=== PATIENT | male | born 1960 | race African-American/Black ===

== ENCOUNTER 2017-03-26 13:22 | Emergency (ER) | payer MEDICARE, MEDICAID ==
[~2017-03-26] VITALS: Ht 170.2 cm; Wt 120.0 kg
[~2017-03-26 13:22] MED LIST: AMLO10TA80 PO; CARV25TA47 PO; CLOP75TA33 PO; DOCU-150 PO; FERR256T PO; FURO80TA3 PO; GLIP10TA10 PO; HYDR100T26 PO; INSLAN SQ; INSU100I7 SQ; ISOS60TA4 PO; LACT10SO PO; LISI10TA5 PO; MULT-1008 PO; POTA20TA12 PO
[2017-03-26 13:24] VITALS: BP 148/78
== END 2017-03-26 15:32 | disposition home or self-care (01) ==
LOC: ER 14:09
DX: Z13.89 Encounter for screening for other disorder (principal); I12.0 Hypertensive chronic kidney disease with stage 5 chronic kidney disease or end stage renal disease; E11.22 Type 2 diabetes mellitus with diabetic chronic kidney disease; N18.6 End stage renal disease; Z99.2 Dependence on renal dialysis; Z79.4 Long term (current) use of insulin; Z79.01 Long term (current) use of anticoagulants
CPT/HCPCS: 71045; 99283

== ENCOUNTER 2017-11-19 10:42 | Inpatient (IN) | payer MEDICARE, MEDICAID ==
[~2017-11-19] VITALS: Ht 170.2 cm; Wt 118.8 kg
[2017-11-19 11:54] LABS: BASOPHILS % 0.8 % (0.0-2.0); EOSINOPHILS % 1.1 % (0.0-5.0); HEMATOCRIT. 34.2 % (42.0-52.0); HEMOGLOBIN. 11.5 g/dL (14.0-18.0); LYMPHOCYTES % 14.1 % (20.0-50.0); MEAN CORPUSCULAR HEMOGLOBIN 30.1 pg (28.0-32.0); MEAN CORPUSCULAR VOLUME 89.5 fL (80.0-94.0); MEAN PLATELET VOLUME 7.5 fl (7.4-10.4); MONOCYTES % 9.4 % (2.0-8.0); NEUTROPHILS % 74.6 % (40.0-76.0); PLATELET 221 x1000/uL (130-400); RED BLOOD CELL COUNT 3.82 mill/uL (4.7-6.1); RED CELL DISTRIBUTION WIDTH 14.2 % (11.6-14.6)
[2017-11-19 12:03] LABS: PARTIAL THROMBOPLASTIN TIME 29.8 sec (23.4-31.0); PROTHROMBIN TIME 10.3 sec (9.1-11.1)
[2017-11-19 12:04] LABS: CHLORIDE 98 mEq/L (98-107)
[2017-11-19 12:41] LABS: HEPATITIS B SURFACE ANTIGEN NEGATIVE
[2017-11-19 13:10] LABS: HEPATITIS B CORE AB IGM NEGATIVE
[2017-11-19 13:11] LABS: HEPATITIS A AB IGM NEGATIVE (NEGATIVE)
[2017-11-19 19:32] LABS: CLARITY URINE CLEAR (CLEAR); COLOR URINE YELLOW (YELLOW); KETONES URINE NEGATIVE (NEGATIVE); LEUKOCYTE ESTERASE URINE NEGATIVE (NEGATIVE); NITRITE URINE NEGATIVE (NEGATIVE); OCCULT BLOOD URINE NEGATIVE (NEGATIVE); PH URINE 7.5 (4.5-8.0); PROTEIN URINE 1+ (NEGATIVE); SPECIFIC GRAVITY URINE 1.013 (1.005-1.030); UROBILINOGEN URINE 0.2 E.U./dL (0.2-1.0)
[2017-11-19 19:53] LABS: *AMPHETAMINES SCREEN URINE NEGATIVE (NEGATIVE); *BARBITURATES SCREEN URINE NEGATIVE (NEGATIVE); *BENZODIAZEPINES SCREEN URINE PRESUMTIVE POSITIVE (NEGATIVE); *COCAINE SCREEN URINE NEGATIVE (NEGATIVE); CANNABINOID URINE SCREEN NEGATIVE (NEGATIVE); METHADONE URINE SCREEN NEGATIVE (NEGATIVE); OPIATES URINE SCREEN NEGATIVE (NEGATIVE); PHENCYCLIDINE URINE SCREEN NEGATIVE (NEGATIVE)
[2017-11-19 22:30] VITALS: BP 155/71
[2017-11-20] VITALS: BP 168/86
[2017-11-20] MEDS ORDERED: DEXTROSE 50% WATER 50ML SYRINGE IV PRN (01:45)
[2017-11-20] MEDS ORDERED: HYDROCODONE/ACETAMINOPHEN 5/325MG TABLET PO PRN ×2 (01:45→20:45)
[2017-11-20 04:00] VITALS: BP 155/83
[2017-11-20] MEDS: BLOOD SUGAR DIAGNOSTIC STRIP TEST SCH ×4 (05:18→21:34)
[2017-11-20] MEDS: INSULIN LISPRO 100 UNITS/ML SUBCUT SCH ×4 (05:41→21:00)
[2017-11-20 08:00] VITALS: BP 188/90
[2017-11-20] MEDS: LISINOPRIL 10MG TABLET PO SCH ×2 (10:13→20:32)
[2017-11-20] MEDS: HYDRALAZINE HCL 100MG TABLET PO SCH (10:14)
[2017-11-20] MEDS: CLOPIDOGREL 75MG TABLET PO SCH (10:15)
[2017-11-20] MEDS: CARVEDILOL 25MG TABLET PO SCH ×2 (10:15→20:31)
[2017-11-20] MEDS: ASPIRIN 81MG EC TABLET PO SCH (10:16)
[2017-11-20] MEDS: SEVELAMER CARBONATE 800 MG TABLET PO SCH ×3 (10:16→16:45)
[2017-11-20] MEDS: DOCUSATE SODIUM 100MG CAPSULE PO SCH (10:16)
[2017-11-20 16:00] VITALS: BP 138/69
[2017-11-20 20:00] VITALS: BP 168/80
[2017-11-20] MEDS: TEMAZEPAM 15MG CAPSULE PO PRN (20:29)
[2017-11-20] MEDS ORDERED: ACETAMINOPHEN 650MG SUPP PR PRN (20:45)
[2017-11-20] MEDS ORDERED: ONDANSETRON 4MG ODT PO PRN (20:45)
[2017-11-20] MEDS ORDERED: DOCUSATE SODIUM 100MG CAPSULE PO PRN (20:45)
[2017-11-20] MEDS ORDERED: ACETAMINOPHEN 325MG TABLET PO PRN (20:45)
[2017-11-20] MEDS ORDERED: MAGNESIUM/ALUMINUM HYDROXIDE/SIMETHICONE 30ML UDC PO PRN (20:45)
[2017-11-20] MEDS ORDERED: CLONIDINE 0.1MG TABLET PO PRN (20:45)
[2017-11-20 22:30] VITALS: BP 142/80
[2017-11-21] VITALS: BP 161/80
[2017-11-21] MEDS: LISINOPRIL 10MG TABLET PO SCH ×3 (00:39→20:29)
[2017-11-21] MEDS: CARVEDILOL 25MG TABLET PO SCH ×3 (00:39→20:29)
[2017-11-21 04:00] VITALS: BP 165/83
[2017-11-21] MEDS: BLOOD SUGAR DIAGNOSTIC STRIP TEST SCH ×4 (06:52→20:46)
[2017-11-21] MEDS: INSULIN LISPRO 100 UNITS/ML SUBCUT SCH ×4 (06:52→20:45)
[2017-11-21] MEDS: SEVELAMER CARBONATE 800 MG TABLET PO SCH ×3 (08:00→17:40)
[2017-11-21 08:08] LABS: BASOPHILS % 0.7 % (0.0-2.0); HEMATOCRIT. 32.5 % (42.0-52.0); HEMOGLOBIN. 11.1 g/dL (14.0-18.0); LYMPHOCYTES % 20.4 % (20.0-50.0); MEAN CORPUSCULAR HEMOGLOBIN 30.5 pg (28.0-32.0); MEAN CORPUSCULAR VOLUME 89.6 fL (80.0-94.0); MEAN PLATELET VOLUME 8.5 fl (7.4-10.4); MONOCYTES % 11.1 % (2.0-8.0); NEUTROPHILS % 66.8 % (40.0-76.0); PLATELET 151 x1000/uL (130-400); RED BLOOD CELL COUNT 3.63 mill/uL (4.7-6.1); RED CELL DISTRIBUTION WIDTH 14.8 % (11.6-14.6)
[2017-11-21] MEDS: HYDRALAZINE HCL 100MG TABLET PO SCH (09:36)
[2017-11-21] MEDS: DOCUSATE SODIUM 100MG CAPSULE PO SCH (09:36)
[2017-11-21] MEDS: ASPIRIN 81MG EC TABLET PO SCH (09:36)
[2017-11-21] MEDS: CLOPIDOGREL 75MG TABLET PO SCH (09:36)
[2017-11-21 12:00] VITALS: BP 120/76
[2017-11-21] MEDS ORDERED: SODIUM POLYSTYRENE SULFONATE 15 G/60 ML BOT PO NR (14:00)
[2017-11-21 16:00] VITALS: BP 126/80
[2017-11-21 20:00] VITALS: BP 135/69
[2017-11-22] VITALS (16 sets, daily range): BP systolic 99–183; BP diastolic 45–92
[2017-11-22] MEDS ORDERED: DEXT 5%/0.45% NACL 1000ML 1,000 ML IV SCH
[2017-11-22 06:26] LABS: PARTIAL THROMBOPLASTIN TIME 33.8 sec (23.4-31.0); PROTHROMBIN TIME 10.2 sec (9.1-11.1)
[2017-11-22 06:28] LABS: BASOPHILS % 0.6 % (0.0-2.0); EOSINOPHILS % 2.1 % (0.0-5.0); HEMATOCRIT. 28.8 % (42.0-52.0); LYMPHOCYTES % 21.2 % (20.0-50.0); MEAN CORPUSCULAR HEMOGLOBIN 31.1 pg (28.0-32.0); MEAN CORPUSCULAR VOLUME 89.3 fL (80.0-94.0); MEAN PLATELET VOLUME 7.7 fl (7.4-10.4); MONOCYTES % 11.6 % (2.0-8.0); NEUTROPHILS % 64.5 % (40.0-76.0); PLATELET 191 x1000/uL (130-400); RED BLOOD CELL COUNT 3.22 mill/uL (4.7-6.1); RED CELL DISTRIBUTION WIDTH 14.5 % (11.6-14.6)
[2017-11-22] MEDS: BLOOD SUGAR DIAGNOSTIC STRIP TEST SCH ×4 (06:42→21:12)
[2017-11-22] MEDS: INSULIN LISPRO 100 UNITS/ML SUBCUT SCH ×4 (06:43→21:12)
[2017-11-22] MEDS ORDERED: CEFAZOLIN 1000MG PREMIX 50 ML IV ONE ×2 (08:51→09:30)
[2017-11-22] MEDS ORDERED: HEPARIN 1000 UNITS/ML 10ML ONE (08:52)
[2017-11-22] MEDS ORDERED: LIDOCAINE HCL 1% 20ML VIAL (Pyxis) INJ ONE (08:52)
[2017-11-22] MEDS ORDERED: FENTANYL CITRATE/PF 50MCG/ML 2ML VIAL ONE (08:52)
[2017-11-22] MEDS ORDERED: SODIUM BICARBONATE 4% (2.4MEQ) 5ML VIAL IV ONE (08:52)
[2017-11-22] MEDS ORDERED: FENTANYL CITRATE/PF 50MCG/ML 2ML VIAL IV ONE (09:30)
[2017-11-22] MEDS: CARVEDILOL 25MG TABLET PO SCH ×2 (10:59→21:09)
[2017-11-22] MEDS: SEVELAMER CARBONATE 800 MG TABLET PO SCH ×3 (10:59→18:33)
[2017-11-22] MEDS: ASPIRIN 81MG EC TABLET PO SCH (11:00)
[2017-11-22] MEDS: DOCUSATE SODIUM 100MG CAPSULE PO SCH (11:00)
[2017-11-22] MEDS: LISINOPRIL 10MG TABLET PO SCH ×2 (11:08→21:10)
[2017-11-22] MEDS: CLOPIDOGREL 75MG TABLET PO SCH (11:08)
[2017-11-22] MEDS: HYDRALAZINE HCL 100MG TABLET PO SCH (11:09)
[2017-11-22] MEDS: TEMAZEPAM 15MG CAPSULE PO PRN (21:10)
[2017-11-23 00:36] VITALS: BP 108/47
[2017-11-23 04:00] VITALS: BP 100/75
[2017-11-23] MEDS: BLOOD SUGAR DIAGNOSTIC STRIP TEST SCH ×2 (06:25→12:39)
[2017-11-23] MEDS: INSULIN LISPRO 100 UNITS/ML SUBCUT SCH ×2 (06:49→12:39)
[2017-11-23 07:16] LABS: BARBITURATE SCREEN Negative ug/mL (Cutoff:0.1); BENZODIAZEPINE SCREEN Negative ng/mL (Cutoff:20); OPIATES SCREEN Negative ng/mL (Cutoff:5); PHENCYCLIDINE SCREEN Negative ng/mL (Cutoff:8)
[2017-11-23 08:00] VITALS: BP 146/65
[2017-11-23] MEDS: HYDRALAZINE HCL 100MG TABLET PO SCH (08:38)
[2017-11-23] MEDS: SEVELAMER CARBONATE 800 MG TABLET PO SCH ×2 (08:38→12:38)
[2017-11-23] MEDS: CARVEDILOL 25MG TABLET PO SCH (08:39)
[2017-11-23] MEDS: ASPIRIN 81MG EC TABLET PO SCH (08:39)
[2017-11-23] MEDS: DOCUSATE SODIUM 100MG CAPSULE PO SCH (08:39)
[2017-11-23] MEDS: CLOPIDOGREL 75MG TABLET PO SCH (08:39)
[2017-11-23] MEDS: LISINOPRIL 10MG TABLET PO SCH (08:39)
[2017-11-23 10:07] VITALS: BP_SYST 145; BP_SYST 147; BP_DIAS 48; BP_DIAS 65
[2017-11-23 12:00] VITALS: BP 145/48
== END 2017-11-23 15:00 | disposition home or self-care (01) | DRG 286 ==
LOC: ER 10:42 → 8WST 18:17 → ENRESERV 20:07
PROVIDERS: ADMIT Internal Medicine; ATTEND Internal Medicine
PROC: 05HM33Z Insertion of Infusion Device into Right Internal Jugular Vein, Percutaneous Approach (ICD-10-PCS; principal; 2017-11-20)
PROC: B513ZZA Fluoroscopy of Right Jugular Veins, Guidance (ICD-10-PCS; 2017-11-20)
PROC: B543ZZA Ultrasonography of Right Jugular Veins, Guidance (ICD-10-PCS; 2017-11-20)
PROC: B2141ZZ Fluoroscopy of Right Heart using Low Osmolar Contrast (ICD-10-PCS; 2017-11-22)
PROC: 0JH63XZ Insertion of Tunneled Vascular Access Device into Chest Subcutaneous Tissue and Fascia, Percutaneous Approach (ICD-10-PCS; 2017-11-22)
PROC: 05PYX3Z Removal of Infusion Device from Upper Vein, External Approach (ICD-10-PCS; 2017-11-22)
PROC: 02H633Z Insertion of Infusion Device into Right Atrium, Percutaneous Approach (ICD-10-PCS; 2017-11-22)
PROC: 5A1D70Z Performance of Urinary Filtration, Intermittent, Less than 6 Hours Per Day (ICD-10-PCS; 2017-11-22)
DX: T82.898A Other specified complication of vascular prosthetic devices, implants and grafts, initial encounter (principal); N18.6 End stage renal disease; D68.59 Other primary thrombophilia; E66.2 Morbid (severe) obesity with alveolar hypoventilation; Z68.41 Body mass index [BMI] 40.0-44.9, adult; I12.0 Hypertensive chronic kidney disease with stage 5 chronic kidney disease or end stage renal disease; Z99.2 Dependence on renal dialysis; E11.22 Type 2 diabetes mellitus with diabetic chronic kidney disease; E87.5 Hyperkalemia; D64.9 Anemia, unspecified; Y83.2 Surgical operation with anastomosis, bypass or graft as the cause of abnormal reaction of the patient, or of later complication, without mention of misadventure at the time of the procedure; E11.319 Type 2 diabetes mellitus with unspecified diabetic retinopathy without macular edema; Z86.73 Personal history of transient ischemic attack (TIA), and cerebral infarction without residual deficits; Y92.89 Other specified places as the place of occurrence of the external cause; Z88.8 Allergy status to other drugs, medicaments and biological substances; Z79.4 Long term (current) use of insulin; Z79.899 Other long term (current) drug therapy; Z79.84 Long term (current) use of oral hypoglycemic drugs; Z79.02 Long term (current) use of antithrombotics/antiplatelets
CPT/HCPCS: 36415; 36556; 36558; 36589; 71045; 76937; 77001; 80048; 80305; 80307; 82962; 83036; 83880; 84484; 86705; 86709; 86803; 87340; 93005; 93970; 93971; 99285; C1750; C1752; C1769; J0690; J1644; J1815; J3010; J3490; J7050

== ENCOUNTER 2018-02-06 08:52 | Inpatient (IN) | payer MEDICARE, MEDICAID ==
[~2018-02-06] VITALS: Ht 170.2 cm; Wt 120.4 kg
[~2018-02-06 08:52] MED LIST changes: -POTA20TA12 PO
[2018-02-06 10:01] LABS: CHLORIDE 101 mEq/L (98-107)
[2018-02-06 10:02] LABS: EOSINOPHILS % 1.9 % (0.0-5.0); HEMATOCRIT. 33.8 % (42.0-52.0); HEMOGLOBIN. 11.4 g/dL (14.0-18.0); LYMPHOCYTES % 22.7 % (20.0-50.0); MEAN CORPUSCULAR HEMOGLOBIN 30.8 pg (28.0-32.0); MEAN CORPUSCULAR VOLUME 91.2 fL (80.0-94.0); MEAN PLATELET VOLUME 6.7 fl (7.4-10.4); MONOCYTES % 10.1 % (2.0-8.0); NEUTROPHILS % 64.3 % (40.0-76.0); PLATELET 283 x1000/uL (130-400); RED CELL DISTRIBUTION WIDTH 14.5 % (11.6-14.6)
[2018-02-06 10:03] LABS: PROTHROMBIN TIME 10.4 sec (9.1-11.1)
[2018-02-06 15:00] VITALS: BP 145/90
[2018-02-06 16:00] VITALS: BP 138/88
[2018-02-06] MEDS ORDERED: DEXTROSE 50% WATER 50ML SYRINGE IV PRN (18:45)
[2018-02-06] MEDS ORDERED: ACETAMINOPHEN 650MG/20.3ML UDC PO PRN (19:00)
[2018-02-06 20:00] VITALS: BP 135/75
[2018-02-06] MEDS: INSULIN LISPRO 100 UNITS/ML SUBCUT SCH (21:57)
[2018-02-06] MEDS: BLOOD SUGAR DIAGNOSTIC STRIP TEST SCH (21:57)
[2018-02-07] VITALS (19 sets, daily range): BP systolic 124–178; BP diastolic 73–93
[2018-02-07 07:12] LABS: EOSINOPHILS % 2.1 % (0.0-5.0); LYMPHOCYTES % 27.9 % (20.0-50.0); MEAN CORPUSCULAR HEMOGLOBIN 31.2 pg (28.0-32.0); MEAN CORPUSCULAR VOLUME 91.2 fL (80.0-94.0); MEAN PLATELET VOLUME 6.6 fl (7.4-10.4); MONOCYTES % 9.6 % (2.0-8.0); NEUTROPHILS % 59.4 % (40.0-76.0); PLATELET 250 x1000/uL (130-400); RED BLOOD CELL COUNT 3.51 mill/uL (4.7-6.1); RED CELL DISTRIBUTION WIDTH 14.6 % (11.6-14.6)
[2018-02-07] MEDS: BLOOD SUGAR DIAGNOSTIC STRIP TEST SCH ×2 (07:20→12:17)
[2018-02-07] MEDS: INSULIN LISPRO 100 UNITS/ML SUBCUT SCH ×2 (07:21→12:50)
[2018-02-07 07:36] LABS: CHLORIDE 103 mEq/L (98-107)
[2018-02-07 07:43] LABS: LDL CHOLESTEROL 73 mg/dL (5-100)
[2018-02-07 07:44] LABS: HDL CHOLESTEROL 45 mg/dL (40-59)
[2018-02-07] MEDS ORDERED: CEFAZOLIN 1000MG PREMIX 50 ML IV ONE ×2 (10:13→10:45)
[2018-02-07] MEDS ORDERED: HEPARIN 1000 UNITS/ML 10ML ONE (10:13)
[2018-02-07] MEDS ORDERED: SODIUM BICARBONATE 4% (2.4MEQ) 5ML VIAL IV ONE (10:13)
[2018-02-07] MEDS ORDERED: LIDOCAINE HCL 1% 20ML VIAL (Pyxis) INJ ONE (10:13)
[2018-02-07] MEDS ORDERED: IOHEXOL-300 100 ML BOTTLE ONE (10:14)
[2018-02-07] MEDS ORDERED: FENTANYL CITRATE/PF 50MCG/ML 2ML VIAL ONE (10:37)
[2018-02-07] MEDS ORDERED: HEPARIN 1000 UNITS/ML 10ML IV ONE (10:45)
[2018-02-07] MEDS ORDERED: HEPARIN 5000 UNITS/ML VIAL IV ONE (10:45)
[2018-02-07] MEDS ORDERED: FENTANYL CITRATE/PF 50MCG/ML 2ML VIAL IV ONE (11:15)
[2018-02-07] MEDS ORDERED: DIPHENHYDRAMINE 50MG/ML VIAL IV PRN (14:30)
[2018-02-07] MEDS ORDERED: HYDROCODONE/ACETAMINOPHEN 5/325MG TABLET PO PRN (14:30)
[2018-02-07] MEDS ORDERED: CARVEDILOL 25MG TABLET PO SCH (14:30)
[2018-02-07] MEDS ORDERED: LISINOPRIL 10MG TABLET PO SCH ×2 (14:30→17:00)
[2018-02-07] MEDS ORDERED: HYDRALAZINE HCL 100MG TABLET PO SCH (17:00)
[2018-02-08] MEDS ORDERED: MULTIVITAMINS,THER W-MINERALS TABLET PO SCH (09:00)
[2018-02-08] MEDS ORDERED: AMLODIPINE 10MG TABLET PO SCH (09:00)
[2018-02-08] MEDS ORDERED: CLOPIDOGREL 75MG TABLET PO SCH (09:00)
[2018-02-08] MEDS ORDERED: DOCUSATE SODIUM 100MG CAPSULE PO SCH (09:00)
[2018-02-08] MEDS ORDERED: GLIPIZIDE 10MG TABLET PO SCH (09:00)
== END 2018-02-07 18:00 | disposition home or self-care (01) | DRG 252 ==
LOC: ER 08:52 → 6WST 11:16 → EDBEDREQ 11:19 → ENRESERV 11:49
PROVIDERS: ADMIT Internal Medicine; ATTEND Internal Medicine
PROC: B51W1ZZ Fluoroscopy of Dialysis Shunt/Fistula using Low Osmolar Contrast (ICD-10-PCS; principal; 2018-02-07)
PROC: 03CY3ZZ Extirpation of Matter from Upper Artery, Percutaneous Approach (ICD-10-PCS; 2018-02-07)
PROC: 05CY3ZZ Extirpation of Matter from Upper Vein, Percutaneous Approach (ICD-10-PCS; 2018-02-07)
PROC: 057A3ZZ Dilation of Left Brachial Vein, Percutaneous Approach (ICD-10-PCS; 2018-02-07)
PROC: B51 Imaging, Veins, Fluoroscopy (ICD-10-PCS; 2018-02-07)
PROC: B31N1ZZ Fluoroscopy of Other Upper Arteries using Low Osmolar Contrast (ICD-10-PCS; 2018-02-07)
PROC: B51N1ZZ Fluoroscopy of Left Upper Extremity Veins using Low Osmolar Contrast (ICD-10-PCS; 2018-02-07)
PROC: 5A1D70Z Performance of Urinary Filtration, Intermittent, Less than 6 Hours Per Day (ICD-10-PCS; 2018-02-07)
DX: T82.868A Thrombosis due to vascular prosthetic devices, implants and grafts, initial encounter (principal); N18.6 End stage renal disease; D68.59 Other primary thrombophilia; I12.0 Hypertensive chronic kidney disease with stage 5 chronic kidney disease or end stage renal disease; Z68.41 Body mass index [BMI] 40.0-44.9, adult; E66.2 Morbid (severe) obesity with alveolar hypoventilation; T82.856A Stenosis of peripheral vascular stent, initial encounter; D64.9 Anemia, unspecified; E11.22 Type 2 diabetes mellitus with diabetic chronic kidney disease; I25.10 Atherosclerotic heart disease of native coronary artery without angina pectoris; E11.319 Type 2 diabetes mellitus with unspecified diabetic retinopathy without macular edema; E11.40 Type 2 diabetes mellitus with diabetic neuropathy, unspecified; Y83.8 Other surgical procedures as the cause of abnormal reaction of the patient, or of later complication, without mention of misadventure at the time of the procedure; E11.65 Type 2 diabetes mellitus with hyperglycemia; E78.5 Hyperlipidemia, unspecified; H54.8 Legal blindness, as defined in USA; Z86.73 Personal history of transient ischemic attack (TIA), and cerebral infarction without residual deficits; Z99.2 Dependence on renal dialysis; Z79.84 Long term (current) use of oral hypoglycemic drugs; Z88.8 Allergy status to other drugs, medicaments and biological substances; Y92.89 Other specified places as the place of occurrence of the external cause
CPT/HCPCS: 36415; 36905; 80048; 80061; 82962; 84443; 93005; 93306; 99152; 99153; 99285; C1725; C1766; C1769; C2630; J0690; J1644; J1815; J3010; J3490; J7050; Q9967; G0500

== ENCOUNTER 2019-09-22 14:30 | Inpatient (IN) | payer MEDICARE, MEDICAID ==
[~2019-09-22] VITALS: Ht 170.2 cm; Wt 129.7 kg
[2019-09-22 16:36] LABS: BASOPHILS % 0.3 % (0.0-2.0); EOSINOPHILS % 0.5 % (0.0-5.0); HEMATOCRIT. 33.8 % (42.0-52.0); HEMOGLOBIN. 11.6 g/dL (14.0-18.0); LYMPHOCYTES % 20.6 % (20.0-50.0); MEAN CORPUSCULAR HEMOGLOBIN 31.8 pg (28.0-32.0); MEAN CORPUSCULAR VOLUME 92.8 fL (80.0-94.0); MEAN PLATELET VOLUME 7.3 fl (7.4-10.4); MONOCYTES % 8.5 % (2.0-8.0); NEUTROPHILS % 70.1 % (40.0-76.0); PLATELET 213 x1000/uL (130-400); RED BLOOD CELL COUNT 3.65 mill/uL (4.7-6.1); RED CELL DISTRIBUTION WIDTH 14.2 % (11.6-14.6)
[2019-09-22 16:40] LABS: PROTHROMBIN TIME 10.5 sec (9.6-11.0)
[2019-09-22 16:41] LABS: CHLORIDE 101 mEq/L (98-107)
[2019-09-23] VITALS: BP 166/66
[2019-09-23] MEDS ORDERED: DEXTROSE 50% WATER 50ML SYRINGE IV PRN (01:15)
[2019-09-23 04:00] VITALS: BP 158/73
[2019-09-23] MEDS: BLOOD SUGAR DIAGNOSTIC STRIP TEST SCH ×4 (07:50→20:45)
[2019-09-23] MEDS: INSULIN LISPRO 100 UNITS/ML SUBCUT SCH ×4 (07:50→20:45)
[2019-09-23 08:00] VITALS: BP 158/77
[2019-09-23] MEDS ORDERED: CARVEDILOL 12.5MG TABLET PO SCH (09:00)
[2019-09-23] MEDS ORDERED: CLOPIDOGREL 75MG TABLET PO SCH (09:00)
[2019-09-23] MEDS ORDERED: ISOSORBIDE MONONITRATE 60MG TABLET SR 24HR PO SCH (09:00)
[2019-09-23] MEDS ORDERED: DOCUSATE SODIUM 100MG CAPSULE PO SCH (09:00)
[2019-09-23] MEDS ORDERED: MEDICATION NOT ON FORMULARY EA (Carvedilol 25 MG) PO SCH (09:00)
[2019-09-23] MEDS ORDERED: AMLODIPINE 10MG TABLET PO SCH (09:00)
[2019-09-23] MEDS: HYDRALAZINE HCL 100MG TABLET PO SCH ×2 (09:17→21:00)
[2019-09-23] MEDS: HEPARIN 5000 UNITS/ML VIAL SUBCUT SCH ×2 (09:20→20:39)
[2019-09-23 12:00] VITALS: BP 134/86
[2019-09-23] MEDS ORDERED: DIPHENHYDRAMINE 50MG/ML VIAL IV SCH (21:15)
[2019-09-23] MEDS ORDERED: INSULIN GLARGINE UD 100 UNITS/ML SYR SUBCUT SCH (22:00)
[2019-09-23 22:25] VITALS: BP 138/72
[2019-09-23 22:26] VITALS: BP 138/72
== END 2019-09-24 00:12 | disposition home health service (06) | DRG 314 ==
LOC: ER 15:08 → 6EST 20:07 → ENRESERV 20:21
PROVIDERS: ADMIT Internal Medicine; ATTEND Internal Medicine
PROC: 5A1D70Z Performance of Urinary Filtration, Intermittent, Less than 6 Hours Per Day (ICD-10-PCS; principal; 2019-09-23)
DX: T82.510A Breakdown (mechanical) of surgically created arteriovenous fistula, initial encounter (principal); N18.6 End stage renal disease; D68.59 Other primary thrombophilia; I12.0 Hypertensive chronic kidney disease with stage 5 chronic kidney disease or end stage renal disease; E66.2 Morbid (severe) obesity with alveolar hypoventilation; Z68.41 Body mass index [BMI] 40.0-44.9, adult; D64.9 Anemia, unspecified; E11.319 Type 2 diabetes mellitus with unspecified diabetic retinopathy without macular edema; E78.5 Hyperlipidemia, unspecified; Y83.2 Surgical operation with anastomosis, bypass or graft as the cause of abnormal reaction of the patient, or of later complication, without mention of misadventure at the time of the procedure; E11.22 Type 2 diabetes mellitus with diabetic chronic kidney disease; E11.65 Type 2 diabetes mellitus with hyperglycemia; Z99.2 Dependence on renal dialysis; Z88.8 Allergy status to other drugs, medicaments and biological substances; Z79.899 Other long term (current) drug therapy; Z79.02 Long term (current) use of antithrombotics/antiplatelets; Z79.84 Long term (current) use of oral hypoglycemic drugs; Y92.89 Other specified places as the place of occurrence of the external cause
CPT/HCPCS: 36415; 80053; 82962; 83036; 85025; 93005; 93971; 99285; J1200; J1644; J1815

== ENCOUNTER 2021-07-30 19:02 | Inpatient (IN) | payer BC, MEDICAID ==
[~2021-07-30] VITALS: Ht 177.8 cm; Wt 118.0 kg
[~2021-07-30 19:02] MED LIST changes: -CLOP75TA33 PO; +HYDR-4001 MT; -ISOS60TA4 PO; +ISOS60TA76 PO; +LISI10TA26 PO; -LISI10TA5 PO
[2021-07-30 21:04] LABS: BASOPHILS % 0.9 % (0.0-2.0); EOSINOPHILS % 0.3 % (0.0-5.0); HEMATOCRIT. 38.3 % (42.0-52.0); HEMOGLOBIN. 12.8 g/dL (14.0-18.0); LYMPHOCYTES % 13.7 % (20.0-50.0); MEAN CORPUSCULAR HEMOGLOBIN 30.6 pg (28.0-32.0); MEAN CORPUSCULAR VOLUME 91.6 fL (80.0-94.0); MEAN PLATELET VOLUME 6.8 fl (7.4-10.4); MONOCYTES % 14.8 % (2.0-8.0); NEUTROPHILS % 70.3 % (40.0-76.0); PLATELET 237 x1000/uL (130-400); RED BLOOD CELL COUNT 4.18 mill/uL (4.7-6.1); RED CELL DISTRIBUTION WIDTH 17.4 % (11.6-14.6)
[2021-07-30] MEDS ORDERED: ACETAMINOPHEN 325MG TABLET PO ONE (22:00)
[2021-07-30 23:19] LABS: CHLORIDE 96 mEq/L (98-107)
[2021-07-30 23:20] LABS: INR 1.1; PROTHROMBIN TIME 11.4 sec (9.6-11.0)
[2021-07-30 23:29] LABS: ETHANOL BLOOD < 10 mg/dL
[2021-07-31] MEDS ORDERED: ASPIRIN 325MG EC TABLET PO ONE (00:45)
[2021-07-31] MEDS ORDERED: HALOPERIDOL LACTATE 5MG/ML VIAL IM ONE (01:00)
[2021-07-31] MEDS ORDERED: DIPHENHYDRAMINE 50MG/ML VIAL IV ONE (01:15)
[2021-07-31] MEDS ORDERED: HALOPERIDOL LACTATE 5MG/ML VIAL IM PRN (05:30)
[2021-07-31] MEDS: ASPIRIN 81MG TABLET PO SCH (09:00)
[2021-07-31] MEDS ORDERED: CLONIDINE 0.1MG TABLET PO PRN (14:30)
[2021-07-31] MEDS ORDERED: ONDANSETRON HCL 4MG/2ML INJ IV PRN (14:30)
[2021-07-31] MEDS ORDERED: IPRATROPIUM/ALBUTEROL 0.5-3(2.5)MG/3ML NEB HHN PRN (14:30)
[2021-07-31] MEDS ORDERED: ACETAMINOPHEN 325MG TABLET PO PRN (14:30)
[2021-07-31] MEDS: ENOXAPARIN 40MG/0.4ML SYR SUBCUT SCH (15:00)
[2021-07-31] MEDS ORDERED: DEXTROSE 50% WATER 50ML SYRINGE IV PRN (21:30)
[2021-08-01] MEDS: BLOOD SUGAR DIAGNOSTIC STRIP TEST SCH ×2 (06:42→13:38)
[2021-08-01] MEDS: INSULIN LISPRO 100 UNITS/ML SUBCUT SCH ×2 (08:10→13:10)
[2021-08-01] MEDS: ASPIRIN 81MG TABLET PO SCH (09:00)
[2021-08-01] MEDS ORDERED: DOCUSATE SODIUM 250MG CAPSULE PO PRN (09:15)
[2021-08-01 12:00] VITALS: BP 158/85
[2021-08-01] MEDS: ENOXAPARIN 40MG/0.4ML SYR SUBCUT SCH (15:00)
[2021-08-01 16:00] VITALS: BP 154/62
[2021-08-01 16:52] VITALS: BP 154/62
== END 2021-08-01 21:50 | disposition home or self-care (01) | DRG 391 ==
LOC: ER 19:02 → 7WST 23:55 → ENRESERV 07-31 03:20 → 7WST 08-01 10:08
PROVIDERS: ADMIT Internal Medicine; ATTEND Internal Medicine
PROC: 5A1D70Z Performance of Urinary Filtration, Intermittent, Less than 6 Hours Per Day (ICD-10-PCS; principal; 2021-08-01)
DX: K59.00 Constipation, unspecified (principal); G93.41 Metabolic encephalopathy; N18.6 End stage renal disease; I12.0 Hypertensive chronic kidney disease with stage 5 chronic kidney disease or end stage renal disease; E11.22 Type 2 diabetes mellitus with diabetic chronic kidney disease; E11.51 Type 2 diabetes mellitus with diabetic peripheral angiopathy without gangrene; H54.8 Legal blindness, as defined in USA; D64.9 Anemia, unspecified; R10.9 Unspecified abdominal pain; E78.5 Hyperlipidemia, unspecified; Z98.890 Other specified postprocedural states; Z88.8 Allergy status to other drugs, medicaments and biological substances; Z99.2 Dependence on renal dialysis; Z86.73 Personal history of transient ischemic attack (TIA), and cerebral infarction without residual deficits; Z79.899 Other long term (current) drug therapy; Z91.19 Patient's noncompliance with other medical treatment and regimen; Z89.412 Acquired absence of left great toe
CPT/HCPCS: 36415; 71045; 74176; 80053; 80320; 82962; 84484; 85025; 99285; J1200; J1630; G0480

== ENCOUNTER 2021-08-02 10:01 | Inpatient (IN) | payer BC, MEDICAID ==
[~2021-08-02] VITALS: Ht 170.2 cm; Wt 102.1 kg
[2021-08-02 11:49] LABS: BASOPHILS % 0.5 % (0.0-2.0); EOSINOPHILS % 0.1 % (0.0-5.0); HEMOGLOBIN. 13.1 g/dL (14.0-18.0); LYMPHOCYTES % 9.4 % (20.0-50.0); MEAN CORPUSCULAR HEMOGLOBIN 30.2 pg (28.0-32.0); MEAN CORPUSCULAR VOLUME 92.4 fL (80.0-94.0); MEAN PLATELET VOLUME 7.1 fl (7.4-10.4); MONOCYTES % 8.5 % (2.0-8.0); NEUTROPHILS % 81.5 % (40.0-76.0); PLATELET 220 x1000/uL (130-400); RED BLOOD CELL COUNT 4.33 mill/uL (4.7-6.1); RED CELL DISTRIBUTION WIDTH 17.1 % (11.6-14.6)
[2021-08-02 11:55] LABS: CHLORIDE 93 mEq/L (98-107)
[2021-08-03 02:33] VITALS: BP 123/72
[2021-08-03 08:00] VITALS: BP 139/51
[2021-08-03] MEDS ORDERED: DEXTROSE 50% WATER 50ML SYRINGE IV PRN (09:00)
[2021-08-03] MEDS ORDERED: GUAIFENESIN 200MG/10ML SUGAR FREE UDC PO PRN (10:30)
[2021-08-03] MEDS ORDERED: NA PHOS,M-B/NA PHOS,DI-BA ENEMA 118ML PR PRN (10:30)
[2021-08-03] MEDS ORDERED: DOCUSATE SODIUM 100MG CAPSULE PO PRN (10:30)
[2021-08-03] MEDS ORDERED: ACETAMINOPHEN 325MG TABLET PO PRN (10:30)
[2021-08-03] MEDS ORDERED: ONDANSETRON HCL 4MG/2ML INJ IV PRN (10:30)
[2021-08-03] MEDS ORDERED: HYDROCODONE/ACETAMINOPHEN 5/325MG TABLET PO PRN (10:30)
[2021-08-03] MEDS ORDERED: ACETAMINOPHEN 650MG SUPP PR PRN (10:30)
[2021-08-03] MEDS ORDERED: LORAZEPAM 0.5MG TABLET PO PRN (10:30)
[2021-08-03] MEDS ORDERED: IPRATROPIUM/ALBUTEROL 0.5-3(2.5)MG/3ML NEB NEB PRN (10:30)
[2021-08-03 12:00] VITALS: BP 127/61
[2021-08-03] MEDS: BLOOD SUGAR DIAGNOSTIC STRIP TEST SCH ×3 (12:16→21:00)
[2021-08-03] MEDS: INSULIN LISPRO 100 UNITS/ML SUBCUT SCH ×3 (13:23→21:00)
[2021-08-03] MEDS ORDERED: NALOXONE HCL 0.4MG/ML VIAL IV PRN (15:30)
[2021-08-03 16:00] VITALS: BP 136/62
[2021-08-03 20:00] VITALS: BP 160/89
[2021-08-03] MEDS: PIPERACILLIN/TAZOBACTAM 3.375 G in DEXTROSE 5% WATER 50 ML IV SCH (20:35)
[2021-08-03] MEDS: FAMOTIDINE 20MG TABLET PO SCH (20:35)
[2021-08-03] MEDS ORDERED: HEPARIN 5000 UNITS/ML VIAL SUBCUT SCH (21:00)
[2021-08-04] VITALS: BP 150/86
[2021-08-04 00:19] LABS: BASOPHILS % 0.9 % (0.0-2.0); EOSINOPHILS % 1.5 % (0.0-5.0); HEMATOCRIT. 36.7 % (42.0-52.0); HEMOGLOBIN. 12.2 g/dL (14.0-18.0); LYMPHOCYTES % 15.5 % (20.0-50.0); MEAN CORPUSCULAR HEMOGLOBIN 30.4 pg (28.0-32.0); MEAN CORPUSCULAR VOLUME 91.2 fL (80.0-94.0); MEAN PLATELET VOLUME 7.3 fl (7.4-10.4); MONOCYTES % 6.9 % (2.0-8.0); NEUTROPHILS % 75.2 % (40.0-76.0); PLATELET 217 x1000/uL (130-400); RED BLOOD CELL COUNT 4.02 mill/uL (4.7-6.1); RED CELL DISTRIBUTION WIDTH 16.8 % (11.6-14.6)
[2021-08-04 00:30] LABS: CHLORIDE 101 mEq/L (98-107)
[2021-08-04 00:37] LABS: PARTIAL THROMBOPLASTIN TIME 28.7 sec (23.4-31.0); PROTHROMBIN TIME 10.7 sec (9.6-11.0)
[2021-08-04 01:35] LABS: HEPATITIS B SURFACE ANTIGEN NEGATIVE
[2021-08-04 04:00] VITALS: BP 148/82
[2021-08-04] MEDS: BLOOD SUGAR DIAGNOSTIC STRIP TEST SCH ×5 (07:20→20:46)
[2021-08-04] MEDS: INSULIN LISPRO 100 UNITS/ML SUBCUT SCH ×4 (07:50→20:44)
[2021-08-04 08:00] VITALS: BP 130/72
[2021-08-04] MEDS: PIPERACILLIN/TAZOBACTAM 3.375 G in DEXTROSE 5% WATER 50 ML IV SCH (08:46)
[2021-08-04 10:14] LABS: BASOPHILS % 1.1 % (0.0-2.0); HEMOGLOBIN. 12.2 g/dL (14.0-18.0); LYMPHOCYTES % 15.1 % (20.0-50.0); MEAN CORPUSCULAR HEMOGLOBIN 30.6 pg (28.0-32.0); MEAN CORPUSCULAR VOLUME 92.3 fL (80.0-94.0); MEAN PLATELET VOLUME 7.2 fl (7.4-10.4); MONOCYTES % 9.9 % (2.0-8.0); NEUTROPHILS % 72.9 % (40.0-76.0); PLATELET 206 x1000/uL (130-400); RED BLOOD CELL COUNT 4.01 mill/uL (4.7-6.1); RED CELL DISTRIBUTION WIDTH 16.6 % (11.6-14.6)
[2021-08-04 12:00] VITALS: BP 119/70
[2021-08-04 16:00] VITALS: BP 125/69
[2021-08-04 20:00] VITALS: BP 158/83
[2021-08-04] MEDS: FAMOTIDINE 20MG TABLET PO SCH (20:44)
[2021-08-05] VITALS: BP 147/80
[2021-08-05 04:00] VITALS: BP 144/82
[2021-08-05] MEDS: INSULIN LISPRO 100 UNITS/ML SUBCUT SCH ×4 (07:50→21:00)
[2021-08-05 08:00] VITALS: BP 152/86
[2021-08-05 12:00] VITALS: BP 154/85
[2021-08-05] MEDS: BLOOD SUGAR DIAGNOSTIC STRIP TEST SCH ×3 (12:10→21:00)
[2021-08-05 16:00] VITALS: BP 169/89
[2021-08-05] MEDS: CLONIDINE 0.1MG TABLET PO PRN (16:17)
[2021-08-05 20:00] VITALS: BP 155/70
[2021-08-05] MEDS: FAMOTIDINE 20MG TABLET PO SCH (21:16)
[2021-08-06 01:00] VITALS: BP 164/78
[2021-08-06] MEDS: CLONIDINE 0.1MG TABLET PO PRN (01:13)
[2021-08-06 04:00] VITALS: BP 144/72
[2021-08-06] MEDS: BLOOD SUGAR DIAGNOSTIC STRIP TEST SCH ×4 (07:20→20:38)
[2021-08-06] MEDS: INSULIN LISPRO 100 UNITS/ML SUBCUT SCH ×4 (07:50→20:38)
[2021-08-06 20:00] VITALS: BP 156/80
[2021-08-06] MEDS: FAMOTIDINE 20MG TABLET PO SCH (20:38)
[2021-08-07] MEDS: INSULIN LISPRO 100 UNITS/ML SUBCUT SCH ×4 (05:39→21:00)
[2021-08-07] MEDS: BLOOD SUGAR DIAGNOSTIC STRIP TEST SCH ×4 (05:39→21:00)
[2021-08-07 08:00] VITALS: BP 155/86
[2021-08-07 12:00] VITALS: BP 130/70
[2021-08-07 15:10] LABS: BASOPHILS % 1.7 % (0.0-2.0); EOSINOPHILS % 2.3 % (0.0-5.0); HEMATOCRIT. 33.3 % (42.0-52.0); LYMPHOCYTES % 19.6 % (20.0-50.0); MEAN CORPUSCULAR HEMOGLOBIN 30.4 pg (28.0-32.0); MEAN CORPUSCULAR VOLUME 91.8 fL (80.0-94.0); MEAN PLATELET VOLUME 7.1 fl (7.4-10.4); MONOCYTES % 9.7 % (2.0-8.0); NEUTROPHILS % 66.7 % (40.0-76.0); PLATELET 283 x1000/uL (130-400); RED BLOOD CELL COUNT 3.63 mill/uL (4.7-6.1); RED CELL DISTRIBUTION WIDTH 16.2 % (11.6-14.6)
[2021-08-07 16:00] VITALS: BP 155/75
[2021-08-07 20:00] VITALS: BP 178/82
[2021-08-07] MEDS: FAMOTIDINE 20MG TABLET PO SCH (22:44)
[2021-08-07] MEDS: MAGNESIUM/ALUMINUM HYDROXIDE/SIMETHICONE 30ML UDC PO PRN (22:44)
[2021-08-08] VITALS: BP 128/62
[2021-08-08 04:00] VITALS: BP 157/84
[2021-08-08] MEDS: BLOOD SUGAR DIAGNOSTIC STRIP TEST SCH ×4 (06:39→21:25)
[2021-08-08] MEDS: INSULIN LISPRO 100 UNITS/ML SUBCUT SCH ×4 (07:50→21:24)
[2021-08-08 08:00] VITALS: BP_SYST 131; BP_SYST 143; BP_DIAS 64; BP_DIAS 76
[2021-08-08 16:00] VITALS: BP 145/84
[2021-08-08 17:00] VITALS: BP 132/86
[2021-08-08 20:00] VITALS: BP 163/78
[2021-08-08] MEDS: FAMOTIDINE 20MG TABLET PO SCH (21:23)
[2021-08-08] MEDS: DIPHENHYDRAMINE 50MG/ML VIAL IV PRN (21:23)
[2021-08-09 04:01] VITALS: BP 112/65
[2021-08-09] MEDS: BLOOD SUGAR DIAGNOSTIC STRIP TEST SCH ×4 (06:38→21:00)
[2021-08-09] MEDS: INSULIN LISPRO 100 UNITS/ML SUBCUT SCH ×4 (06:51→21:00)
[2021-08-09 08:00] VITALS: BP 111/76
[2021-08-09 08:01] LABS: BASOPHILS % 1.1 % (0.0-2.0); EOSINOPHILS % 3.5 % (0.0-5.0); HEMATOCRIT. 33.5 % (42.0-52.0); HEMOGLOBIN. 11.2 g/dL (14.0-18.0); LYMPHOCYTES % 24.3 % (20.0-50.0); MEAN CORPUSCULAR HEMOGLOBIN 30.2 pg (28.0-32.0); MEAN CORPUSCULAR VOLUME 90.6 fL (80.0-94.0); MEAN PLATELET VOLUME 7.1 fl (7.4-10.4); MONOCYTES % 12.9 % (2.0-8.0); NEUTROPHILS % 58.2 % (40.0-76.0); PLATELET 303 x1000/uL (130-400); RED CELL DISTRIBUTION WIDTH 16.2 % (11.6-14.6)
[2021-08-09 12:00] VITALS: BP 161/81
[2021-08-09 16:00] VITALS: BP 158/74
[2021-08-09 20:00] VITALS: BP 147/85
[2021-08-09] MEDS: MAGNESIUM/ALUMINUM HYDROXIDE/SIMETHICONE 30ML UDC PO PRN (21:41)
[2021-08-09] MEDS: FAMOTIDINE 20MG TABLET PO SCH (21:41)
[2021-08-09] MEDS: DIPHENHYDRAMINE 50MG/ML VIAL IV PRN (21:41)
[2021-08-10] VITALS: BP 169/73
[2021-08-10] MEDS: TEMAZEPAM 15MG CAPSULE PO PRN (02:06)
[2021-08-10 04:00] VITALS: BP 142/81
[2021-08-10] MEDS: BLOOD SUGAR DIAGNOSTIC STRIP TEST SCH ×4 (07:20→20:06)
[2021-08-10] MEDS: INSULIN LISPRO 100 UNITS/ML SUBCUT SCH ×4 (07:50→20:06)
[2021-08-10 08:00] VITALS: BP 147/79
[2021-08-10 12:00] VITALS: BP 156/83
[2021-08-10 16:00] VITALS: BP 160/75
[2021-08-10 20:00] VITALS: BP 162/87
[2021-08-10] MEDS: CLONIDINE 0.1MG TABLET PO PRN (20:04)
[2021-08-10] MEDS: FAMOTIDINE 20MG TABLET PO SCH (20:04)
[2021-08-10] MEDS: DIPHENHYDRAMINE 50MG/ML VIAL IV PRN (22:56)
[2021-08-11] VITALS: BP 167/80
[2021-08-11 04:00] VITALS: BP 131/80
[2021-08-11] MEDS: BLOOD SUGAR DIAGNOSTIC STRIP TEST SCH ×4 (06:29→21:00)
[2021-08-11 06:33] LABS: BASOPHILS % 1.3 % (0.0-2.0); EOSINOPHILS % 3.6 % (0.0-5.0); HEMOGLOBIN. 10.8 g/dL (14.0-18.0); LYMPHOCYTES % 27.1 % (20.0-50.0); MEAN CORPUSCULAR HEMOGLOBIN 30.9 pg (28.0-32.0); MEAN CORPUSCULAR VOLUME 91.4 fL (80.0-94.0); MEAN PLATELET VOLUME 7.1 fl (7.4-10.4); MONOCYTES % 12.2 % (2.0-8.0); NEUTROPHILS % 55.8 % (40.0-76.0); PLATELET 285 x1000/uL (130-400); RED CELL DISTRIBUTION WIDTH 15.7 % (11.6-14.6)
[2021-08-11 08:00] VITALS: BP 123/79
[2021-08-11] MEDS: INSULIN LISPRO 100 UNITS/ML SUBCUT SCH ×4 (08:48→21:00)
[2021-08-11 12:00] VITALS: BP 127/82
[2021-08-11 16:00] VITALS: BP 137/90
[2021-08-11 20:00] VITALS: BP 168/74
[2021-08-11] MEDS: TEMAZEPAM 15MG CAPSULE PO PRN (21:50)
[2021-08-11] MEDS: FAMOTIDINE 20MG TABLET PO SCH (21:50)
[2021-08-11] MEDS: CLONIDINE 0.1MG TABLET PO PRN (21:51)
[2021-08-12] VITALS: BP 168/80
[2021-08-12 04:00] VITALS: BP 162/81
[2021-08-12] MEDS: BLOOD SUGAR DIAGNOSTIC STRIP TEST SCH ×4 (06:25→20:33)
[2021-08-12] MEDS: INSULIN LISPRO 100 UNITS/ML SUBCUT SCH ×4 (07:50→20:34)
[2021-08-12 08:00] VITALS: BP 158/84
[2021-08-12 12:00] VITALS: BP 151/52
[2021-08-12] MEDS: CLONIDINE 0.1MG TABLET PO PRN (17:37)
[2021-08-12 20:00] VITALS: BP 168/81
[2021-08-12] MEDS: FAMOTIDINE 20MG TABLET PO SCH (20:32)
[2021-08-12] MEDS: TEMAZEPAM 15MG CAPSULE PO PRN (20:33)
[2021-08-13] VITALS: BP 149/76
[2021-08-13 04:00] VITALS: BP 168/78
[2021-08-13] MEDS: CLONIDINE 0.1MG TABLET PO PRN ×3 (04:41→20:37)
[2021-08-13 08:00] VITALS: BP 167/84
[2021-08-13] MEDS: BLOOD SUGAR DIAGNOSTIC STRIP TEST SCH ×4 (08:08→20:20)
[2021-08-13] MEDS: INSULIN LISPRO 100 UNITS/ML SUBCUT SCH ×4 (08:08→20:19)
[2021-08-13 12:00] VITALS: BP 168/86
[2021-08-13] MEDS ORDERED: HYDRALAZINE 20MG/ML VIAL IV PRN (14:00)
[2021-08-13] MEDS ORDERED: HYDRALAZINE 10 MG in SODIUM CHLORIDE 0.9% 49.5 ML IV PRN (14:00)
[2021-08-13 16:00] VITALS: BP 168/84
[2021-08-13 20:00] VITALS: BP 165/74
[2021-08-13] MEDS: FAMOTIDINE 20MG TABLET PO SCH (20:29)
[2021-08-14] VITALS (7 sets, daily range): BP systolic 128–173; BP diastolic 56–81
[2021-08-14] MEDS ORDERED: AMLODIPINE 10MG TABLET PO NR (01:57)
[2021-08-14] MEDS: CLONIDINE 0.1MG TABLET PO PRN (02:28)
[2021-08-14] MEDS: BLOOD SUGAR DIAGNOSTIC STRIP TEST SCH ×4 (06:54→20:12)
[2021-08-14 07:27] LABS: BASOPHILS % 1.3 % (0.0-2.0); EOSINOPHILS % 3.2 % (0.0-5.0); HEMATOCRIT. 29.3 % (42.0-52.0); HEMOGLOBIN. 9.9 g/dL (14.0-18.0); LYMPHOCYTES % 26.3 % (20.0-50.0); MEAN CORPUSCULAR HEMOGLOBIN 30.9 pg (28.0-32.0); MEAN CORPUSCULAR VOLUME 91.5 fL (80.0-94.0); MEAN PLATELET VOLUME 7.5 fl (7.4-10.4); MONOCYTES % 12.8 % (2.0-8.0); NEUTROPHILS % 56.4 % (40.0-76.0); PLATELET 236 x1000/uL (130-400); RED CELL DISTRIBUTION WIDTH 15.9 % (11.6-14.6)
[2021-08-14] MEDS: AMLODIPINE 10MG TABLET PO SCH (08:43)
[2021-08-14] MEDS: INSULIN LISPRO 100 UNITS/ML SUBCUT SCH ×4 (08:44→20:13)
[2021-08-14] MEDS ORDERED: TAMS-11 PO (17:18)
[2021-08-14] MEDS ORDERED: SEVE0.8P PO (17:18)
[2021-08-14] MEDS: FAMOTIDINE 20MG TABLET PO SCH (20:09)
[2021-08-15 04:00] VITALS: BP 129/52
[2021-08-15] MEDS: BLOOD SUGAR DIAGNOSTIC STRIP TEST SCH ×4 (06:23→20:41)
[2021-08-15] MEDS: INSULIN LISPRO 100 UNITS/ML SUBCUT SCH ×4 (06:23→20:36)
[2021-08-15 08:00] VITALS: BP 167/82
[2021-08-15] MEDS: SEVELAMER CARBONATE 800 MG TABLET PO SCH ×3 (08:59→18:40)
[2021-08-15] MEDS: TAMSULOSIN HCL 0.4MG SR CAPSULE PO SCH (08:59)
[2021-08-15] MEDS: AMLODIPINE 10MG TABLET PO SCH (08:59)
[2021-08-15 12:00] VITALS: BP 175/75
[2021-08-15 16:00] VITALS: BP 145/75
[2021-08-15 17:59] LABS: BASOPHILS % 1.2 % (0.0-2.0); EOSINOPHILS % 1.6 % (0.0-5.0); HEMATOCRIT. 29.2 % (42.0-52.0); HEMOGLOBIN. 9.8 g/dL (14.0-18.0); LYMPHOCYTES % 20.5 % (20.0-50.0); MEAN CORPUSCULAR VOLUME 92.4 fL (80.0-94.0); MONOCYTES % 10.5 % (2.0-8.0); NEUTROPHILS % 66.2 % (40.0-76.0); PLATELET 228 x1000/uL (130-400); RED BLOOD CELL COUNT 3.16 mill/uL (4.7-6.1)
[2021-08-15 20:00] VITALS: BP 136/36
[2021-08-15] MEDS: FAMOTIDINE 20MG TABLET PO SCH (20:37)
[2021-08-16] VITALS: BP 177/78
[2021-08-16] MEDS: CLONIDINE 0.1MG TABLET PO PRN (01:18)
[2021-08-16 04:00] VITALS: BP 166/40
[2021-08-16] MEDS: BLOOD SUGAR DIAGNOSTIC STRIP TEST SCH ×4 (06:25→20:40)
[2021-08-16] MEDS: INSULIN LISPRO 100 UNITS/ML SUBCUT SCH ×4 (07:50→20:57)
[2021-08-16 08:00] VITALS: BP 167/81
[2021-08-16] MEDS: TAMSULOSIN HCL 0.4MG SR CAPSULE PO SCH (09:00)
[2021-08-16] MEDS: AMLODIPINE 10MG TABLET PO SCH (09:00)
[2021-08-16] MEDS: SEVELAMER CARBONATE 800 MG TABLET PO SCH ×3 (09:11→17:00)
[2021-08-16 12:00] VITALS: BP 180/75
[2021-08-16 16:00] VITALS: BP 189/72
[2021-08-16] MEDS: DIPHENHYDRAMINE 50MG/ML VIAL IV PRN (16:24)
[2021-08-16 20:00] VITALS: BP 143/78
[2021-08-16] MEDS: FAMOTIDINE 20MG TABLET PO SCH (20:40)
[2021-08-16] MEDS ORDERED: CLOP-31 PO (20:58)
[2021-08-16] MEDS ORDERED: OMEP20TA15 PO (20:59)
[2021-08-16] MEDS ORDERED: NIFE90TA60 PO (21:00)
[2021-08-16] MEDS ORDERED: CYCL10TA21 PO (21:01)
[2021-08-16] MEDS ORDERED: TAMS-11 PO (21:02)
[2021-08-16] MEDS ORDERED: HYDR100T26 PO (21:04)
[2021-08-16] MEDS ORDERED: CARV25TA47 PO (21:05)
[2021-08-17] VITALS: BP 155/79
[2021-08-17 04:00] VITALS: BP 164/54
[2021-08-17] MEDS: CLONIDINE 0.1MG TABLET PO PRN ×2 (04:53→16:15)
[2021-08-17] MEDS: BLOOD SUGAR DIAGNOSTIC STRIP TEST SCH ×3 (06:24→17:34)
[2021-08-17 07:21] LABS: BASOPHILS % 1.2 % (0.0-2.0); EOSINOPHILS % 2.8 % (0.0-5.0); HEMATOCRIT. 29.7 % (42.0-52.0); HEMOGLOBIN. 9.8 g/dL (14.0-18.0); LYMPHOCYTES % 24.9 % (20.0-50.0); MEAN CORPUSCULAR HEMOGLOBIN 30.6 pg (28.0-32.0); MEAN CORPUSCULAR VOLUME 92.6 fL (80.0-94.0); MEAN PLATELET VOLUME 7.3 fl (7.4-10.4); MONOCYTES % 10.5 % (2.0-8.0); NEUTROPHILS % 60.6 % (40.0-76.0); PLATELET 219 x1000/uL (130-400); RED BLOOD CELL COUNT 3.21 mill/uL (4.7-6.1); RED CELL DISTRIBUTION WIDTH 15.4 % (11.6-14.6)
[2021-08-17] MEDS: INSULIN LISPRO 100 UNITS/ML SUBCUT SCH ×3 (07:49→17:50)
[2021-08-17] MEDS: AMLODIPINE 10MG TABLET PO SCH (08:51)
[2021-08-17] MEDS: TAMSULOSIN HCL 0.4MG SR CAPSULE PO SCH (08:52)
[2021-08-17] MEDS: SEVELAMER CARBONATE 800 MG TABLET PO SCH ×4 (08:52→17:57)
[2021-08-17 12:00] VITALS: BP 147/70
[2021-08-17 16:39] VITALS: BP 175/78
== END 2021-08-17 18:45 | DRG 682 ==
LOC: ER 10:51 → MICUSO 20:06 → 6EST 08-03 04:39
PROVIDERS: ADMIT Internal Medicine; ATTEND Internal Medicine
PROC: 5A1D70Z Performance of Urinary Filtration, Intermittent, Less than 6 Hours Per Day (ICD-10-PCS; principal; 2021-08-03)
PROC: 5A1D70Z Performance of Urinary Filtration, Intermittent, Less than 6 Hours Per Day (ICD-10-PCS; 2021-08-07)
PROC: 5A1D70Z Performance of Urinary Filtration, Intermittent, Less than 6 Hours Per Day (ICD-10-PCS; 2021-08-09)
PROC: 5A1D70Z Performance of Urinary Filtration, Intermittent, Less than 6 Hours Per Day (ICD-10-PCS; 2021-08-12)
PROC: 5A1D70Z Performance of Urinary Filtration, Intermittent, Less than 6 Hours Per Day (ICD-10-PCS; 2021-08-14)
DX: I12.0 Hypertensive chronic kidney disease with stage 5 chronic kidney disease or end stage renal disease (principal); G93.41 Metabolic encephalopathy; N18.6 End stage renal disease; E11.22 Type 2 diabetes mellitus with diabetic chronic kidney disease; E78.5 Hyperlipidemia, unspecified; H54.8 Legal blindness, as defined in USA; D63.1 Anemia in chronic kidney disease; R26.89 Other abnormalities of gait and mobility; Z79.4 Long term (current) use of insulin; Z79.84 Long term (current) use of oral hypoglycemic drugs; Z99.2 Dependence on renal dialysis; Z86.73 Personal history of transient ischemic attack (TIA), and cerebral infarction without residual deficits; Z79.899 Other long term (current) drug therapy; Z91.15 Patient's noncompliance with renal dialysis; W19.XXXA Unspecified fall, initial encounter; Y93.89 Activity, other specified; Y92.89 Other specified places as the place of occurrence of the external cause; Y99.8 Other external cause status
CPT/HCPCS: 36415; 71045; 72170; 80048; 80053; 82140; 82962; 83036; 83880; 84443; 85025; 86705; 86709; 86803; 87340; 93005; 93970; 97116; 97162; 97530; 99285; J0360; J1200; J1815; J2543; J7060

== ENCOUNTER 2024-01-04 07:15 | Inpatient (IN) | payer BC, MEDICAID, MEDICARE ==
[~2024-01-04] VITALS: Ht 170.2 cm; Wt 123.9 kg
[~2024-01-04 07:15] MED LIST changes: +CLOP-31 PO; +CYCL10TA21 PO; -DOCU-150 PO; +DOCU-422 PO; -GLIP10TA10 PO; +GLIP10TA17 PO; +HYDR100T11 PO; -HYDR100T26 PO; +NIFE90TA60 PO; +OMEP20TA15 PO; +SEVE0.8P PO; +TAMS-11 PO
[2024-01-04 08:34] LABS: BASOPHILS % 0.9 % (0.0-2.0); EOSINOPHILS % 0.8 % (0.0-5.0); HEMATOCRIT. 25.9 % (42.0-52.0); HEMOGLOBIN. 8.7 g/dL (14.0-18.0); LYMPHOCYTES % 10.4 % (20.0-50.0); MEAN CORPUSCULAR HEMOGLOBIN 32.4 pg (28.0-32.0); MEAN CORPUSCULAR HGB CONC 33.5 g/dL (31.0-37.0); MEAN CORPUSCULAR VOLUME 96.8 fL (80.0-94.0); MONOCYTES % 7.9 % (2.0-8.0); PLATELET 308 x1000/uL (130-400); RED BLOOD CELL COUNT 2.68 mill/uL (4.7-6.1); RED CELL DISTRIBUTION WIDTH 17.5 % (11.6-14.6)
[2024-01-04 08:40] LABS: CHLORIDE 102 mEq/L (98-107); SODIUM 142 mEq/L (136-145)
[2024-01-04 08:41] LABS: CALCIUM 9.3 mg/dL (8.7-10.4); CARBON DIOXIDE 27 mEq/L (21-32)
[2024-01-04 08:46] LABS: GLUCOSE 156 mg/dL (70-105); UREA NITROGEN BLOOD 69 mg/dL (9-23)
[2024-01-04 08:48] LABS: ALANINE AMINOTRANSFERASE 14 IU/L (10-49); ASPARTATE AMINOTRANSFERASE 59 IU/L (<34); BILIRUBIN DIRECT 0.1 mg/dL (<=3.0); BILIRUBIN TOTAL 0.4 mg/dL (0.1-1.0); PROTEIN TOTAL 7.1 g/dL (6.0-8.3)
[2024-01-04 08:54] LABS: TROPONIN I HIGH SENSITIVITY 76 ng/L (3.0-53)
[2024-01-04 08:55] LABS: CREATININE 8.8 mg/dL (0.6-1.3)
[2024-01-04] MEDS: CEFTRIAXONE 1GM/50ML 50 ML IV ONE (09:01)
[2024-01-04] MEDS: FUROSEMIDE 40MG/4ML VIAL IVP ONE (09:01)
[2024-01-04] MEDS: AZITHROMYCIN 500MG/250ML 250 ML IV SCH (09:27)
[2024-01-04 12:03] LABS: POTASSIUM 4.1 mEq/L (3.5-5.1)
[2024-01-04 12:04] LABS: CALCIUM 9.2 mg/dL (8.7-10.4)
[2024-01-04 12:39] LABS: CREATININE 8.6 mg/dL (0.6-1.3)
[2024-01-04 13:17] LABS: TROPONIN I HIGH SENSITIVITY 90 ng/L (3.0-53)
[2024-01-04] MEDS ORDERED: ACETAMINOPHEN 325MG TABLET PO PRN (15:00)
[2024-01-04] MEDS ORDERED: ONDANSETRON HCL 4MG/2ML INJ IV PRN (15:00)
[2024-01-04] MEDS: IPRATROPIUM/ALBUTEROL 0.5-3(2.5)MG/3ML NEB HHN SCH (18:00)
[2024-01-04 19:46] VITALS: PULSE 71; RESP 18; O2SAT 97
[2024-01-04 20:00] VITALS: BP 180/85; PULSE 80; RESP 24; TEMP 36.78072; O2SAT 94
[2024-01-05] VITALS (15 sets, daily range): BP systolic 118–181; BP diastolic 41–87; PULSE 81–96; RESP 15–22; TEMP 27.2244–36.696; O2SAT 90–99
[2024-01-05] MEDS ORDERED: MELATONIN 3MG TABLET PO ONE (00:45)
[2024-01-05] MEDS: CLONIDINE 0.1MG TABLET PO PRN (01:15)
[2024-01-05] MEDS: FUROSEMIDE 40MG TABLET PO SCH ×2 (01:15→07:24)
[2024-01-05] MEDS: MELATONIN 3MG TABLET PO NR (01:40)
[2024-01-05] MEDS ORDERED: DEXTROSE 50% WATER 50ML SYRINGE IV PRN (05:45)
[2024-01-05] MEDS: INSULIN LISPRO 100 UNITS/ML SUBCUT SCH (07:15)
[2024-01-05] MEDS: BLOOD SUGAR DIAGNOSTIC STRIP TEST SCH (07:24)
[2024-01-05] MEDS: CEFTRIAXONE 1GM/50ML 50 ML IV SCH (10:08)
[2024-01-05] MEDS: AZITHROMYCIN 250 MG TABLET PO SCH (10:08)
[2024-01-05] MEDS: AMLODIPINE 10MG TABLET PO SCH (10:09)
[2024-01-05] MEDS: DOCUSATE SODIUM 100MG CAPSULE PO SCH (10:10)
[2024-01-05] MEDS: CARVEDILOL 12.5MG TABLET PO SCH (10:12)
[2024-01-05] MEDS: HYDRALAZINE HCL 100MG TABLET PO SCH (10:12)
[2024-01-05] MEDS: CLOPIDOGREL 75MG TABLET PO SCH (10:13)
[2024-01-05 16:17] LABS: HEPATITIS B SURFACE ANTIGEN NEGATIVE (Negative)
[2024-01-05 16:37] LABS: HEPATITIS A AB IGM NEGATIVE (Negative)
[2024-01-05 16:38] LABS: HEPATITIS B CORE AB IGM NEGATIVE (Negative)
[2024-01-05 16:39] LABS: HEPATITIS C AB NON REACTIVE (Neg) (Negative)
[2024-01-05] MEDS ORDERED: MELATONIN 3MG TABLET PO SCH (21:00)
[2024-01-06] VITALS (7 sets, daily range): BP systolic 128–155; BP diastolic 50–55; PULSE 82–88; RESP 18–19; TEMP 36.16956–36.78072; O2SAT 82–98
[2024-01-06] MEDS: FAMOTIDINE 20MG TABLET PO SCH (09:16)
[2024-01-06] MEDS ORDERED: INFLUENZA VACCINE 05/PF 0.5 ML SYRINGE IM ONE (15:00)
[2024-01-06] MEDS ORDERED: PNEUMOCOCCAL 20-VAL CONJ-DIP CRM 0.5ML IM ONE (15:00)
[2024-01-07] VITALS (11 sets, daily range): BP systolic 91–145; BP diastolic 40–60; PULSE 76–88; RESP 16–19; TEMP 36.28068–36.9474; O2SAT 86–99
[2024-01-07] MEDS ORDERED: LEVO250T74 MT (14:22)
[2024-01-07 18:15] LABS: BG BASE EXCESS -0.8 mmol/L (-2.0-3.0); BG CARBOXYHEMOGLOBIN 0.5 % (0.5-1.5); BG DEOXYHEMOGLOBIN 9.3 % (0.0-5.0); BG FRACTION INSPIRED OXYGEN 21; BG METHEMOGLOBIN 0.3 % (0.5-1.5); BG OXYGEN SATURATION 90.6 % (94.0-98.0); BG OXYHEMOGLOBIN 89.9 % (94.0-98.0); BG PH 7.396 (7.350-7.450); BG PO2 65.8 mmHg (83.0-108.0); BG SAMPLE SITE RIGHT RADIAL; BG TOTAL HEMOGLOBIN 10.9 g/dL (13.5-17.5); BG VENT MODE ROOM AIR
[2024-01-07 22:51] LABS: BASOPHILS % 0.9 % (0.0-2.0); EOSINOPHILS % 4.6 % (0.0-5.0); HEMATOCRIT. 24.3 % (42.0-52.0); HEMOGLOBIN. 8.3 g/dL (14.0-18.0); LYMPHOCYTES % 9.9 % (20.0-50.0); MEAN CORPUSCULAR HEMOGLOBIN 32.6 pg (28.0-32.0); MEAN CORPUSCULAR HGB CONC 34.3 g/dL (31.0-37.0); MEAN CORPUSCULAR VOLUME 95.1 fL (80.0-94.0); MEAN PLATELET VOLUME 6.9 fl (7.4-10.4); MONOCYTES % 8.2 % (2.0-8.0); NEUTROPHILS % 76.4 % (40.0-76.0); PLATELET 279 x1000/uL (130-400); RED BLOOD CELL COUNT 2.55 mill/uL (4.7-6.1); RED CELL DISTRIBUTION WIDTH 16.3 % (11.6-14.6); WHITE BLOOD COUNT 6.8 x1000/uL (4.5-11.0)
[2024-01-07] MEDS: ZOLPIDEM TARTRATE 5MG TABLET PO PRN (23:09)
[2024-01-08] VITALS: BP 135/58; PULSE 83; RESP 18; TEMP 36.55848; O2SAT 97
[2024-01-08 04:00] VITALS: BP 137/59; PULSE 98; RESP 18; TEMP 36.55848; O2SAT 99
[2024-01-08 08:00] VITALS: BP 155/42; PULSE 89; RESP 19; TEMP 36.50292; O2SAT 98
[2024-01-08] MEDS: AZITHROMYCIN 500 MG TABLET PO SCH (09:21)
[2024-01-08 12:00] VITALS: BP 142/58; PULSE 90; RESP 18; TEMP 36.44736; O2SAT 99
[2024-01-08 12:58] VITALS: BP 155/42; PULSE 89; TEMP 97.7; O2SAT 98
[2024-01-12] MEDS ORDERED: LIP40 MT (13:47)
== END 2024-01-08 13:15 | disposition home or self-care (01) | DRG 193 ==
LOC: ER 07:15 → 5WST 08:41 → 7EST 01-05 23:10
PROVIDERS: ADMIT Internal Medicine; ATTEND Internal Medicine
PROC: 5A1D70Z Performance of Urinary Filtration, Intermittent, Less than 6 Hours Per Day (ICD-10-PCS; principal; 2024-01-05)
PROC: 5A1D70Z Performance of Urinary Filtration, Intermittent, Less than 6 Hours Per Day (ICD-10-PCS; 2024-01-07)
DX: J18.9 Pneumonia, unspecified organism (principal); J96.00 Acute respiratory failure, unspecified whether with hypoxia or hypercapnia; N18.6 End stage renal disease; I13.2 Hypertensive heart and chronic kidney disease with heart failure and with stage 5 chronic kidney disease, or end stage renal disease; E87.5 Hyperkalemia; I50.9 Heart failure, unspecified; E11.22 Type 2 diabetes mellitus with diabetic chronic kidney disease; M48.02 Spinal stenosis, cervical region; E66.9 Obesity, unspecified; D64.9 Anemia, unspecified; Z68.35 Body mass index [BMI] 35.0-35.9, adult; Z86.73 Personal history of transient ischemic attack (TIA), and cerebral infarction without residual deficits; Z99.2 Dependence on renal dialysis
CPT/HCPCS: 36415; 36600; 71045; 80048; 80076; 82375; 82805; 82962; 83036; 84145; 84484; 85025; 86705; 86709; 87340; 90935; 93005; 94640; 97161; 99291; J0456; J0696; J1815; J1940